=== PATIENT | male | born 1950 | race Caucasian/White ===

== ENCOUNTER 2016-12-21 16:16 | Emergency (ER) | payer MEDICARE, BC ==
[2016-12-21] MEDS ORDERED: ASPIRIN 81 MG CHEWABLE CTB ONE (16:22)
[2016-12-21 16:52] VITALS: TEMP 98.2
[2016-12-21] MEDS ORDERED: ASPIRIN 81 MG CHEWABLE CTB PO ONE (16:52)
[2016-12-21] MEDS ORDERED: SODIUM CHLORIDE 0.9% FLUSH 10 ML SOL IV PRN (16:52)
[2016-12-21 16:55] LABS: BASOPHILS % (AUTO) 1 % (0-3); EOSINOPHILS % (AUTO) 4 % (0-9); HEMATOCRIT 43 % (39-53); MEAN CORPUSCULAR HGB CONC 35.4 gm/dl (32.0-36.0); MEAN CORPUSCULAR VOLUME 83 fL (80-100); MONOCYTES % (AUTO) 7.5 % (0-12); NEUTROPHILS % (AUTO) 61.8 % (37-80)
[2016-12-21 17:17] LABS: ALBUMIN 3.7 gm/dl (3.4-5.0); ALT 28 IU/L (14-63); CALCIUM 8.7 mg/dl (8.5-10.1); GLOM FILT RATE 82 mL/min (>60); POTASSIUM 3.7 mMol/L (3.5-5.1); SODIUM 138 mMol/L (136-145); THYROID STIMULATING HORMONE 1.784 uU/ml (0.358-3.740)
[2016-12-21 17:50] VITALS: BP 139/75; PULSE 78; RESP 16; O2SAT 97
== END 2016-12-21 17:43 | disposition home or self-care (01) | DRG 310 ==
LOC: ED 16:16
DX: R00.2 Palpitations (principal); F17.210 Nicotine dependence, cigarettes, uncomplicated
CPT/HCPCS: 36415; 71020; 80053; 84443; 84484; 85025; 93005; 99284